=== PATIENT | female | born 1955 | race Caucasian/White ===

== ENCOUNTER 2018-04-23 10:59 | Emergency (ER) | payer MEDICARE, BC ==
[~2018-04-23] VITALS: Ht 165.1 cm; Wt 106.6 kg
[~2018-04-23 10:59] MED LIST: ALPR1 PO; Amitiza24 MCG; Apidra Sol100 UNIT/1 SC; Augmentin 875-1 EACH PO; BUDE6HFA; CIPR500 PO; CITA20 PO; CYCL10 PO; Coreg12.5 MG PO; DIPATR PO; DOCU100 PO; DULO30 PO; DULO60 PO; ERGO50000 PO; FLEXERIL; FURO20 PO; FURO40 PO; Fludrocortison0.1 MG; HYDACE5 PO; HYDCHL12.5 PO; HYDHCL25 PO; HYDR1TAB94 PO; Hydrocodone-Ap1 EA23; Hydrocodone-Ap1 EA23 PO; K-Dur10 MEQ PO; K-TAB ER20 MEQ PO; LEVFLO500 PO; LEVSOD150 PO; LEVSOD200; LEVSOD25; LISI20 PO; LORA.5 PO; Lasix20 MG PO; Levaquin750 MG PO; MAGCIT300 PO; MELO7.5; MELO7.5 PO; MONT10T PO; NEBI10 PO; ONDA4ODT MM; OXYACE5T PO; PREDNISONE; PROC10 PO; Roxicodone5 MG PO; TOUJEO SOL300 UNIT/1 SQ; VARUBI90 MG PO; VICODIN; Zofran Odt4 MG PO; [UNRECOGNIZED DRUG - REMARK]
[2018-04-23] MEDS ORDERED: HYDHCL25 (11:26)
[2018-04-23] MEDS ORDERED: CLON.3 PO (11:26)
[2018-04-23] MEDS ORDERED: OXYC5 (11:27)
[2018-04-23 11:44] LABS: BASOPHILS ABSOLUTE AUTO 0.02 K/mm3 (0.00-0.23); BASOPHILS PERCENT AUTO 0 % (0-2); EOSINOPHILS ABSOLUTE AUTO 0.02 K/mm3 (0.00-0.68); EOSINOPHILS PERCENT AUTO 0 % (0-6); Hematocrit 31.7 % (33.0-51.0); Hemoglobin 10.2 g/dL (11.5-16.0); IMMATURE GRAN ABSOLUTE AUTO 0.03 K/mm3 (0.00-0.10); IMMATURE GRAN PERCENT AUTO 0 % (0-1); LYMPHOCYTES ABSOLUTE AUTO 2.66 K/mm3 (0.84-5.20); LYMPHOCYTES PERCENT AUTO 25 % (21-46); MONOCYTES ABSOLUTE AUTO 0.58 K/mm3 (0.16-1.47); MONOCYTES PERCENT AUTO 5 % (4-13); Mean Corpuscular HGB 29.2 pg (26.0-34.0); Mean Corpuscular HGB Conc 32.2 g/dL (31.5-36.5); Mean Corpuscular Volume 91 fL (80-100); Mean Platelet Volume 9.8 fL (9.1-12.4); NEUTROPHILS ABSOLUTE AUTO 7.44 K/mm3 (1.96-9.15); NEUTROPHILS PERCENT AUTO 69 % (41-73); Platelet Count 461 K/mm3 (150-400); RDW Coefficient Variation 15.9 % (11.7-14.2); RDW Standard Deviation 52.3 fL (35.1-46.3); Red Blood Cell Count 3.49 M/mm3 (3.80-5.20); White Blood Cell Count 10.75 K/mm3 (4.00-11.30)
[2018-04-23 11:54] LABS: Albumin, Blood 3.4 g/dL (3.4-5.0); Albumin/Globulin Ratio 0.9 (0.8-1.8); Bilirubin, Total 0.4 mg/dL (0.1-1.0); Bun/Creatinine Ratio 20.8 (12.0-20.0); Calcium, Blood 9.2 mg/dL (8.5-10.1); Creatinine, Blood 1.06 mg/dL (0.40-1.00); Globulin, Blood 3.8 g/dL (2.2-4.0); Potassium, Blood 4.1 mmol/L (3.5-5.5); Total Protein, Blood 7.2 g/dL (6.4-8.2)
[2018-04-23] MEDS ORDERED: Dazidox10 MG PO (17:55)
[2018-04-23] MEDS ORDERED: Zofran Odt4 MG PO (17:55)
[2018-04-23] MEDS ORDERED: PHENERGAN25 MG PR (17:55)
[2018-04-23] MEDS ORDERED: Miralax17 GM PO (17:58)
== END 2018-04-23 19:52 | disposition home or self-care (01) ==
LOC: ER 10:59
PROVIDERS: Emergency Medicine
DX: K91.870 Postprocedural hematoma of a digestive system organ or structure following a digestive system procedure (principal); K59.00 Constipation, unspecified; I10 Essential (primary) hypertension; E11.9 Type 2 diabetes mellitus without complications; Z88.0 Allergy status to penicillin; Z91.011 Allergy to milk products; Z91.018 Allergy to other foods; Z88.8 Allergy status to other drugs, medicaments and biological substances; Z79.899 Other long term (current) drug therapy; Z79.4 Long term (current) use of insulin; Z87.891 Personal history of nicotine dependence
CPT/HCPCS: 36415; 71045; 74176; 80053; 83605; 83690; 84484; 85025; 93005; 93010; 96361; 96365; 96367; 96375; 96376; 99285-25; J0360; J0696; J1642; J2405; J2550; J3010; J7030